=== PATIENT | male | born 1990 | race African-American/Black ===

== ENCOUNTER 2018-02-13 02:05 | Emergency (ER) | payer OTHER ==
[2018-02-13] MEDS: METOCLOPRAMIDE INJ 10MG/2ML VIAL (J2765) IV (04:26)
[2018-02-13] MEDS: KETOROLAC 30 MG/ML VIAL (J1885) IV (04:26)
[2018-02-13] MEDS: diphenhydrAMINE INJ 50MG/ML VIAL (J1200) IV (04:26)
== END 2018-02-13 05:26 | disposition home or self-care (01) ==
LOC: M ED 02:05
DX: G43.909 Migraine, unspecified, not intractable, without status migrainosus (principal)
CPT/HCPCS: J1200

== ENCOUNTER 2018-02-27 18:44 | Emergency (ER) | payer OTHER ==
[2018-02-27 20:06] LABS: BASO # 0.1 10^3/uL (0.0-0.2); BASO % 1.3 % (0.0-1.0); EOS # 0.1 10^3/uL (0.0-0.50); EOS % 2.3 % (0.0-3.0); HEMATOCRIT 38.4 % (42.0-52.0); HEMOGLOBIN 12.9 g/dl (13.5-17.5); LYMPH # 1.8 10^3/uL (1.5-6.5); LYMPH % 45.7 % (24.0-44.0); MEAN CORPUSCULAR HEMOGLOBIN 27.4 pg (27.0-33.0); MEAN CORPUSCULAR HGB CONC 33.6 g/dl (32.0-36.5); MEAN CORPUSCULAR VOLUME 81.5 fl (80.0-96.0); MONO # 0.4 10^3/uL (0.0-0.8); MONO % 10.3 % (0.0-5.0); NEUTROPHILS # 1.6 10^3/uL (1.8-7.7); NEUTROPHILS % 40.4 % (36.0-66.0); PLATELET COUNT, AUTOMATED 198 10^3/uL (150-450); RED BLOOD COUNT 4.71 10^6/uL (4.30-6.10); RED CELL DISTRIBUTION WIDTH 13.2 % (11.5-14.5); WHITE BLOOD COUNT 3.9 10^3/uL (4.0-10.0)
[2018-02-27 20:10] LABS: BEDSIDE GLUCOSE 79 MG/DL (70-105)
[2018-02-27] MEDS ORDERED: MORPHINE 2 MG/ML 1ML SYRINGE (J2270) As Ordered (20:21)
[2018-02-27] MEDS: MORPHINE 2 MG/ML 1ML SYRINGE (J2270) IV (20:25)
[2018-02-27 20:37] LABS: ACETAMINOPHEN LEVEL < 2.0 UG/ML (10.0-30.0); ALBUMIN 3.8 GM/DL (3.2-5.2); ALBUMIN/GLOBULIN RATIO 1.27 (1.00-1.93); ALKALINE PHOSPHATASE 75 U/L (45-117); ALT/SGPT 49 U/L (12-78); ANION GAP 10 MEQ/L (8-16); AST/SGOT 24 U/L (7-37); BILIRUBIN,DIRECT < 0.1 MG/DL (0.0-0.2); BILIRUBIN,TOTAL 0.2 MG/DL (0.2-1.0); BLOOD UREA NITROGEN 12 MG/DL (7-18); CALCIUM LEVEL 8.2 MG/DL (8.5-10.1); CARBON DIOXIDE LEVEL 24 MEQ/L (21-32); CHLORIDE LEVEL 107 MEQ/L (98-107); CK-MB VALUE MASS < 1.0 NG/ML (<3.6); CPK CREATINE PHOSPHOKINASE 200 U/L (39-308); ETHYL ALCOHOL (ETHANOL) 0.036 % (0.000-0.010); GLOMERULAR FILTRATION RATE > 60.0 (>60); GLUCOSE, FASTING 89 MG/DL (70-100); POTASSIUM SERUM 3.2 MEQ/L (3.5-5.1); SALICYLATE LEVEL < 1.7 MG/DL (5.0-30.0); SODIUM LEVEL 141 MEQ/L (136-145); TOTAL PROTEIN 6.8 GM/DL (6.4-8.2); TROPONIN I < 0.02 NG/ML (< 0.10)
[2018-02-27] MEDS: POTASSIUM CHLORIDE 10 MEQ SR TABLET PO (20:55)
[2018-02-27 21:20] LABS: AMPHETAMINES LEVEL URINE NEGATIVE (NEGATIVE); BARBITURATES URINE NEGATIVE (NEGATIVE); BENZODIAZEPINES URINE NEGATIVE (NEGATIVE); CANNABINOIDS URINE NEGATIVE (NEGATIVE); COCAINE METABOLITE URINE NEGATIVE (NEGATIVE); METHADONE URINE NEGATIVE (NEGATIVE); OPIATES URINE POSITIVE (NEGATIVE); PHENCYCLIDINE URINE NEGATIVE (NEGATIVE)
== END 2018-02-27 22:32 | disposition home or self-care (01) ==
LOC: M ED 18:44
DX: S16.1XXA Strain of muscle, fascia and tendon at neck level, initial encounter (principal); T14.8XXA Other injury of unspecified body region, initial encounter; W00.0XXA Fall on same level due to ice and snow, initial encounter; Y92.410 Unspecified street and highway as the place of occurrence of the external cause; F10.20 Alcohol dependence, uncomplicated; F11.20 Opioid dependence, uncomplicated; Y90.0 Blood alcohol level of less than 20 mg/100 ml
CPT/HCPCS: J2270

== ENCOUNTER 2018-07-03 10:10 | Emergency (ER) | payer OTHER ==
[~2018-07-03] VITALS: Ht 175.3 cm; Wt 81.8 kg
[~2018-07-03 10:10] MED LIST: ACET1TAB55 PO; AMIT50TA PO; CELE1CAP7 PO; METH1TAB40 PO; [UNRECOGNIZED DRUG - OTHER]
[2018-07-03] MEDS ORDERED: ROZE8TAB16 (10:47)
[2018-07-03] MEDS ORDERED: CHLO125TA (10:47)
[2018-07-03] MEDS ORDERED: VITA-122 (10:47)
[2018-07-03] MEDS ORDERED: DIVA500T94 (10:47)
[2018-07-03] MEDS ORDERED: LIDO1PAD (10:47)
[2018-07-03] MEDS ORDERED: SERT-155 (10:47)
[2018-07-03] MEDS ORDERED: SUMA25TA3 (10:47)
[2018-07-03 12:48] VITALS: BP 134/78
--- NOTE | 2018-07-04 09:30 | REP ---
Right hand series: Four views. History: Injury. Twisting injury to the thumb. Findings: Four views of the right hand demonstrate overall normal mineralization. No fracture or subluxation is seen. No opaque foreign body is appreciated. Impression: No acute bony abnormality. Electronically Signed by See Fairchild MD 07/03/2018 12:15 P
== END 2018-07-03 12:49 | disposition home or self-care (01) ==
LOC: M ED 10:10
DX: S63.621A Sprain of interphalangeal joint of right thumb, initial encounter (principal); X50.9XXA Other and unspecified overexertion or strenuous movements or postures, initial encounter; Y92.89 Other specified places as the place of occurrence of the external cause; Y93.89 Activity, other specified